=== PATIENT | female | born 1945 | race Caucasian/White ===

== ENCOUNTER 2016-11-13 12:07 | Observation (INO) | payer MEDICARE, OTHER ==
[2016-11-13] MEDS ORDERED: Nitroglycerin TAB 0.4 MG* 0.4 MG TAB SL ONE (12:41)
--- NOTE | 2016-11-13 13:14 | RAD ---
INDICATION: Chest pain COMPARISON: None TECHNIQUE: An AP portable view obtained at 1248hours is submitted. FINDINGS: Bones/Soft Tissues: There are no acute bony findings. Cardiomediastinal: The cardiomediastinal silhouette is normal. Lungs: There are no infiltrates. Pleura: There are no pleural effusions. Other: None IMPRESSION: NO ACTIVE DISEASE.
[2016-11-13 13:27] LABS: Hematocrit 41 % (35-47); Hemoglobin 13.8 g/dl (12.0-16.0); Mean Corpuscular HGB Conc 34 g/dl (31-36); Mean Corpuscular Hemoglobin 31 pg (27-31); Mean Corpuscular Volume 92 fL (80-97); Mean Platelet Volume 8 um3 (7.4-10.4); Red Blood Count 4.39 10^6/ul (4.0-5.4); Red Cell Distribution Width 13 % (10.5-15); White Blood Count 6.1 10^3/ul (3.5-10.8)
[2016-11-13 13:36] LABS: Comments Flag Yes
[2016-11-13 13:38] LABS: Add Diff/Slide Review? Slide Review Added
[2016-11-13 13:55] LABS: Albumin 4.1 g/dL (3.2-5.2); BUN/Creatinine Ratio 19.1 (8-20); Calcium 9.7 mg/dL (8.6-10.3); EGFR African American 75.3 (>60); EGFR Non-African American 58.5 (>60); Globulin 2.6 g/dL (2-4); Total Bilirubin 1.5 mg/dL (0.2-1.0); Total Protein 6.7 g/dL (6.4-8.9)
[2016-11-13] MEDS ORDERED: Acetaminophen TAB* 325 MG PO PRN (14:43)
[2016-11-13] MEDS ORDERED: Ondansetron INJ* 2 MG/ML VIAL IV PRN (14:43)
[2016-11-13] MEDS ORDERED: Morphine INJ* 2 MG/ML 1 ML CARPUJECT IV PRN (14:43)
[2016-11-13] MEDS: Heparin VIAL(*) 5000 UNITS/ML VIAL (FIVE THOUSAND) SUBCUT SCH (22:00)
[2016-11-13] MEDS: Senna TAB PO SCH (22:00)
[2016-11-14] MEDS: Heparin VIAL(*) 5000 UNITS/ML VIAL (FIVE THOUSAND) SUBCUT SCH (05:46)
--- NOTE | 2016-11-14 10:31 | RAD ---
Edited for charges. Indication: Chest pain. Myocardial perfusion scan was performed utilizing 1 day protocol. Rest myocardial perfusion was performed after intravenous injection of 10.9 mCi of technetium 99m tetrofosmin. Treadmill stress study was performed and 25.1 mCi of technetium 99 and tetrofosmin was injected for the stress portion of the study. The maximum heart rate of cheek was 99% of maximum predicted value. There is homogeneous distribution of the radiotracer throughout the left ventricle. There is no evidence of any fixed or reversible perfusion defect identified. The ejection fraction at stress is 79%. Evaluation of wall motion demonstrates normal wall motion abnormality. IMPRESSION: No evidence of fixed or reversible perfusion defects are identified. ASSESSMENT: Low risk Based on imaging criteria from ACC/AHA 2002 Guideline Update for the Management of Patients With Chronic Stable Angina Table 23. Noninvasive Risk Stratification. MTDD
[2016-11-14] MEDS: Senna TAB PO SCH (10:33)
[2016-11-14 11:42] VITALS: BP 104/55
--- NOTE | 2016-11-21 15:08 | ED ---
Nati Andujar Alfonso scribed for Kirk Sierra MD on 11/13/16 at 1243 . HPI Chest Pain - HPI Summary HPI Summary: This patient is a 71 year old F presenting to [facility] with a chief complaint of CP since 2 days ago. She denies pain radiation. The CC is described as an intermittent pressure and tightness. The patient rates the pain 2/10 in severity. Symptoms aggravated by nothing. Symptoms alleviated by nothing. Patient reports nausea. Patient denies headache, SOB, diaphoresis, calf pain, and calf swelling. She denies recent changes in medication. She denies PMHx of CAD, HTN, and DM. PMHx includes HLD. - History of Current Complaint Chief Complaint: EDChestPainROMI Time Seen by Provider: 11/13/16 12:35 Hx Obtained From: Patient Onset/Duration: Started Days Ago - 2, Still Present Timing: Intermittent Current Severity: Mild Pain Intensity: 2 Pain Scale Used: 0-10 Numeric Chest Pain Radiates: No Character: Pressure/Squeezing, Tightness Aggravating Factor(s): Nothing Alleviating Factor(s): Nothing Associated Signs and Symptoms: Positive: Other: - nausea. Patient denies headache, SOB, diaphoresis, calf pain, and calf swelling - Allergy/Home Medications Allergies/Adverse Reactions: Allergies Allergy/AdvReac Type Severity Reaction Status Date / Time Aspirin Allergy Intermediate See Comment Verified 11/13/16 12:27 PMH/Surg Hx/FS Hx/Imm Hx Endocrine/Hematology History: Denies: Hx Diabetes Cardiovascular History: Reports: Hx Hypercholesterolemia, Hx Peripheral Vascular Disease - VARICOSE VEINS BILATERAL LOWER LEGS, Other Cardiovascular Problems/Disorders - THROMBOCYTOPENIA Denies: Hx Hypertension Musculoskeletal History: Reports: Hx Arthritis - BILATERAL FEET AND HANDS Denies: Hx Osteoporosis Sensory History: Reports: Hx Cataracts, Hx Contacts or Glasses - READING GLASSES , DRIVING GLASSES Denies: Hx Hearing Aid Opthamlomology History: Reports: Hx Cataracts, Hx Contacts or Glasses - READING GLASSES, DRIVING GLASSES - Cancer History Hx Chemotherapy: No Hx Radiation Therapy: No - Surgical History Surgery Procedure, Year, and Place: 2011 BILATERAL CATARACT EXTRACTION WITH IOL IMPLANTS[place] [facility] [place] TONSILLECTOMY AND ADENOIDECTOMY A CHILD. 1977 COUNTS INCLUDE 234 BEDS AT [facility]. COLONOSCOPY ABOUT 10 YEARS AGO Hx Anesthesia Reactions: No Infectious Disease History: No Infectious Disease History: Denies: Traveled Outside the [place] in Last 30 Days - Family History Known Family History: Positive: Cardiac Disease - [place] at 40 y.o. in father - Social History Alcohol Use: Weekly Alcohol Amount: 3-4 glasses per week Substance Use Type: Reports: None Smoking Status (MU): Former Smoker Amount Used/How Often: 1 PACK EVERY 10 DAYS Length of Time of Smoking/Using Tobacco: 2-3 YEARS SOCIALLY Review of Systems Negative: Fever, Chills, Skin Diaphoresis Negative: Erythema Negative: Sore Throat Positive: Chest Pain Negative: Shortness Of Breath, Cough Positive: Nausea. Negative: Abdominal Pain, Vomiting Negative: dysuria, hematuria Positive: Other - negative calf pain and calf swelling. Negative: Myalgia, Edema Negative: Rash Neurological: Other - negative dizziness and headache All Other Systems Reviewed And Are Negative: Yes Physical Exam Triage Information Reviewed: Yes Vital Signs On Initial Exam: Initial Vitals Temp Pulse Resp BP Pulse Ox 98.4 F 50 16 132/65 100 11/13/16 12:28 11/13/16 12:28 11/13/16 12:28 11/13/16 12:28 11/13/16 12:28 Vital Signs Reviewed: Yes Appearance: Positive: Well-Appearing, No Pain Distress Skin: Positive: Warm, Dry Head/Face: Positive: Normal Head/Face Inspection Eyes: Positive: Conjunctiva Clear Neck: Positive: Other: - Musculoskeletal ROM normal neck. (-) JVD, (-) Stridor, (-) Tracheal deviation, (-) Cervical adenopathy Respiratory/Lung Sounds: Positive: Other - Effort normal. (-) Respiratory distress, (-) Wheezes, (-) Rales Cardiovascular: Positive: RRR, Other - Heart sounds normal; Intact distal pulses ; The pedal pulses are 2+ and symmetric. Radial pulses are 2+ and symmetric. (- ) Murmur Abdomen Description: Positive: Nontender, Soft, Other: - No rebound. Negative: Distended, Guarding Musculoskeletal: Negative: Edema Left, Edema Right Neurological: Positive: Alert, Oriented to Person Place, Time Psychiatric: Positive: Affect/Mood Appropriate Diagnostics - Vital Signs Vital Signs Temp Pulse Resp BP Pulse Ox 11/13/16 12:28 98.4 F 50 16 132/65 100 - Laboratory Result Diagrams: 11/13/16 13:10 09/21/17 13:10 Lab Statement: Any lab studies that have been ordered have been reviewed, and results considered in the medical decision making process. - Radiology CXR Radiology Interpretation Completed By: Radiologist - NO ACTIVE DISEASE. ED physician has reviewed this radiology report and agrees. - EKG 1251 Cardiac Rate: Bradycardia - BPM 48 EKG Rhythm: Sinus Bradycardia EKG Interpretation: NO STEMI Re-Evaluation - Re-Evaluation First Eval Re-Evaluation Time: 14:39 Comment: She is CP free with NTG. Chest Pain Course/Dx - Course Assessment/Plan: This patient is a 71 year old F presenting to [facility] with a chief complaint of CP since 2 days ago. She denies pain radiation. The CC is described as an intermittent pressure and tightness. The patient rates the pain 2/10 in severity. Symptoms aggravated by nothing. Symptoms alleviated by nothing. Patient reports nausea. Patient denies headache, SOB, diaphoresis, calf pain, and calf swelling. She denies recent changes in medication. She denies PMHx of CAD, HTN, and DM. PMHx includes HLD. An EKG reveals sinus bradycardia. CXR reveals NO ACTIVE DISEASE. ED physician has reviewed this radiology report and agrees. We discussed patient care with Dr. Cintron ( hospitalist) and they agreed to admit the patient. The patient will be admitted under the services of Dr. Cintron. The patient is agreeable with this plan. - Diagnoses Provider Diagnoses: Chest pain, unspecified - Provider Notifications Discussed Care Of Patient With: Linden Cintron Time Discussed With Above Provider: 14:35 Instructed by Provider To: Other - We discussed patient care with Dr. Cintron ( hospitalist) and they agreed to admit the patient. Discharge - Discharge Plan Condition: Stable Disposition: ADMITTED TO [facility] Referrals: Tawny Hernandez MD [Primary Care Provider] - The documentation as recorded by the Nati lewis Alfonso accurately reflects the service I personally performed and the decisions made by me, Kirk Sierra MD.
--- NOTE | 2016-12-12 10:57 | HP ---
ADMISSION HISTORY AND PHYSICAL AND DISCHARGE SUMMARY: DATE OF ADMISSION: 11/13/16 DATE OF DISCHARGE: 11/14/16 CHIEF COMPLAINT: Chest pain. HISTORY OF PRESENT ILLNESS: Ms. Luna is a pleasant 71-year-old female who [place] [facility] [facility] with a chief complaint of chest pain for the past 2 days. There was no radiation. It was intermittent pressure and tightness. It was described as 2/10 in intensity. It was not aggravated by anything specifically and the patient did not seek to alleviate it by medication or other maneuvering. The patient was nauseous, but denied headache, shortness of breath or diaphoresis. There was no recent change in her medications and there was no known history of coronary disease, hypertension or diabetes. She does have hyperlipidemia. The patient is being referred to the Hospitalist service for continued rule-out of myocardial infarction and/or acute coronary syndrome and for likely stress testing when that is accomplished. PAST MEDICAL HISTORY: 1. Hyperlipidemia. 2. Potentially GERD. 3. History of Herpes zoster, 2008. 4. History of adenomatous polyp of her colon in 2015. 5. Familial thrombocytopenia. 6. History of tinnitus in the left ear. 7. History of cerebrovascular accident back in 1972 while with no recurrent problems. 8. Persistent microscopic hematuria. 9. Osteopenia. 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 She is a former smoker that smoked only in her 20s. She drinks alcohol occasionally. She lives with a male partner. FAMILY HISTORY: Significant for malignant melanoma of her maternal aunt. Rheumatic heart disease in her father, diabetes mellitus in her mother who is at age 47, seizure disorder in her brother, a blood coagulation disorder in her sister. REVIEW OF SYSTEMS: A review of 14-systems was accomplished at the bedside. This was largely negative except for the pertinent positives mentioned above in the HPI and past medical history. PHYSICAL EXAMINATION GENERAL APPEARANCE: A 71-year-old appears stated age, in no apparent distress. Awake, alert and oriented to x3 and answering questions appropriately. VITAL SIGNS: Temperature 98.4 degrees Fahrenheit, blood pressure 132/65, pulse 50s to 60s and regular, respirations 16 and unlabored. Oxygen saturation 100% on room air. HEENT: Oropharynx is clear. Mucous membranes are moist. No posterior pharyngeal erythema or exudate. NECK: Supple. No elevated JVD. Normal trachea. Normal thyroid. No carotid bruits. CHEST: Clear breath sounds anteriorly and posteriorly. HEART: Regular rate and rhythm. No murmurs, rubs or gallops. No chest wall tenderness. ABDOMEN: Soft and nontender. No masses, rebound or guarding. SKIN: Dry and intact. EXTREMITIES: Without clubbing, cyanosis or edema. NEURO: Nonfocal exam. No sensory or motor deficits. PSYCH: Normal affect. No acute anxiety or depression. LYMPH: No adenopathy appreciated. ADMISSION DATA: White blood cell count 6.1, hemoglobin 13.8, platelets 51 (at baseline) D-dimer under 200. Blood chemistry is normal except for total bilirubin modestly elevated at 1.5 (upper limits of normal is 1), protein levels are otherwise preserved. The troponin is 0.00. EKG on admission was normal sinus rhythm. Evidence of active ischemia. Chest x - ray was clear with no active pulmonary or cardiac disease noted. IMPRESSION AND PLAN: Ms. Luna is a 71-year-old female who presents with chest discomfort. She is concerned that this might represent coronary disease and I agreed to conduct serial troponins and then perhaps proceed with stress testing. She would like to be sure that this does not represent coronary disease and that she does not have any occult coronary disease such that a stress test would be indicated. The patient will continue her other medications during the hospitalization. HISTORY OF PRESENT ILLNESS AND HOSPITAL COURSE: Ms. Luna was admitted to the hospital and did well overnight. She proceeded with an exercise nuclear stress test and this was rated at low risk according to ACC/AHA criteria from 2001. The patient has not re-experienced chest discomfort. She is being discharged without any medication changes. She is going to follow up with Dr. Tawny Hernandez, who was given a courtesy call about the patient during this hospitalization. DISCHARGE MEDICATIONS: Unchanged from her admission regimen and include: 1. Vitamin C 500 mg by mouth daily. 2. Calcium 500 mg by mouth daily. 3. Vitamin D3 2000 units by mouth twice daily with meals. 4. Lysine 500 mg by mouth daily. 5. Permethrin 5% cream apply topically as needed. 6. Chelated zinc 50 mg by mouth daily. Return to ED instructions were given to the patient. Education was given about common causes of chest pain and patient is going to follow up with her primary care physician for further workup and management. [id number]/[facility] #: [id number] [facility]
== END 2016-11-14 13:30 | disposition home or self-care (01) ==
LOC: ED 12:07 → MEDTELE 14:43
PROVIDERS: ADMIT Internal Medicine; ATTEND Internal Medicine
DX: R07.9 Chest pain, unspecified (principal); E78.5 Hyperlipidemia, unspecified; D69.6 Thrombocytopenia, unspecified; I73.9 Peripheral vascular disease, unspecified; M85.80 Other specified disorders of bone density and structure, unspecified site; Z87.891 Personal history of nicotine dependence; R00.1 Bradycardia, unspecified
CPT/HCPCS: 36415; 71010; 78452; 80053; 83605; 84484; 85025; 85379; 93005; 93017; 99284; A9270-GY; A9502; G0378